=== PATIENT | male | born 1940 | race Caucasian/White ===

== ENCOUNTER 2017-03-29 14:13 | Emergency (ER) | payer MEDICARE, BC ==
[2017-03-29 14:56] VITALS: BP 113/65
--- NOTE | 2017-03-29 15:36 | RAD ---
HISTORY: Trauma, medial patellar pain COMPARISONS: None VIEWS: 2, Frontal and lateral views of the right knee FINDINGS: BONE DENSITY: Normal. BONES: There is no displaced fracture. JOINTS: There is mild tricompartmental osteoarthritis. There is no suprapatellar joint effusion or lipohemarthrosis. ALIGNMENT: There is no dislocation. SOFT TISSUES: Unremarkable. OTHER FINDINGS: None. IMPRESSION: NO ACUTE OSSEOUS INJURY. IF SYMPTOMS PERSIST, RECOMMEND REPEAT IMAGING.
--- NOTE | 2017-03-29 15:40 | UC ---
Knee Pain HPI - HPI Summary HPI Summary: complaint of right knee pain that started 3 days ago slight swelling on the medial side of knee hurts when he is walking and standing no pain with resting of his knee denies trauma tried to use aspercreme without relief - History of Current Complaint Chief Complaint: UCLowerExtremity Stated Complaint: RIGHT KNEE INJURY Time Seen by Provider: 03/29/17 15:31 Hx Obtained From: Patient - Allergies/Home Medications Allergies/Adverse Reactions: Allergies Allergy/AdvReac Type Severity Reaction Status Date / Time Sulfa Antibiotics Allergy See Comment Verified 03/29/17 14:52 Home Medications: Home Medications Brimonidine/Timolol OPTH(NF) [Combigan OPHTH (NF)] 03/29/17 [History] Carbidopa-Levodopa [Carbidopa/Levodopa] 03/29/17 [History] FLUoxetine CAP* [Prozac CAP*] 03/29/17 [History] Finasteride TAB* [Proscar TAB*] 03/29/17 [History Confirmed 03/29/17] Pantoprazole Sodium [Protonix] 40 mg 03/29/17 [History] Tamsulosin CAP* [Flomax CAP*] 03/29/17 [History] buPROPion TAB* [Wellbutrin TAB*] 03/29/17 [History] predniSONE TAB* [Deltasone TAB*] 03/29/17 [History] PMH/Surg Hx/FS Hx/Imm Hx Previously Healthy: Yes - newlt dx for parkinson, enlarged prostate Psychological History: Depression - Surgical History Surgical History: Yes Surgery Procedure, Year, and Place: BILATERAL HIP REPLACEMENTS , CERVICAL FUSION 1987, FINGER SURGERY - Family History Known Family History: Negative: Cardiac Disease, Hypertension, Diabetes - Social History Occupation: Retired Lives: With Family Alcohol Use: None Substance Use Type: None Smoking Status (MU): Former Smoker Review of Systems Constitutional: Negative Skin: Negative Eyes: Negative ENT: Negative Respiratory: Negative Cardiovascular: Negative Gastrointestinal: Negative Genitourinary: Negative Motor: Negative Neurovascular: Negative Musculoskeletal: Other: - right knee pain Neurological: Negative Psychological: Negative All Other Systems Reviewed And Are Negative: Yes Physical Exam Triage Information Reviewed: Yes Appearance: No Pain Distress, Well-Nourished Vital Signs: Initial Vital Signs Temp 98.9 F 03/29/17 14:54 Pulse 68 03/29/17 14:54 Resp 16 03/29/17 14:54 BP 113/65 03/29/17 14:54 Pulse Ox 100 03/29/17 14:54 Vital Signs Reviewed: Yes Eyes: Positive: Conjunctiva Clear ENT: Positive: Pharynx normal, TMs normal Neck: Positive: No Lymphadenopathy Respiratory: Positive: Lungs clear, Normal breath sounds, No respiratory distress, No accessory muscle use Cardiovascular: Positive: RRR, No Murmur, Pulses Normal Abdomen Description: Positive: Nontender, Soft Bowel Sounds: Positive: Present Musculoskeletal: Positive: Other: - RLE-tenderness in medial side of knee No bakers cyst. Full ROM (extension/flexion). Limited internal and external rotation. Medial, lateral meniscus; anterior, posterior cruciate ligaments , medial & lateral collateral ligaments intact as assessed with negative Anterior/ Posterior Drawer signs, Lachmans, and McMurrays Tests. No effusion, bulge/ balloon sign Neurological: Positive: Alert Psychological Exam: Normal Skin Exam: Normal Knee Pain Course/Dx - Course Course Of Treatment: exam completed. x-ray results - no fracture or other abnormalities. will treat for knee sprain, NSIADS and followup with PCP - Differential Dx/Diagnosis Differential Diagnosis/HQI/PQRI: Fracture (Closed), Sprain, Strain Provider Diagnoses: right knee pain Discharge - Discharge Plan Condition: Stable Disposition: HOME Patient Education Materials: Knee Pain (ED), RICE Therapy (ED) Referrals: Jimbo Sawyer MD [Primary Care Provider] - Additional Instructions: Increase fluids and rest Take acetaminophen 650 mg PO twice a day for pain rest your knee, elevate your leg and apply ice to your knee twice a day Please review your discharge instructions. If your symptoms do not improve please call your primary care provider or return to urgent care.
== END 2017-03-29 15:55 | disposition home or self-care (01) ==
LOC: UCEAST 14:13
DX: M25.561 Pain in right knee (principal); G20 Parkinson's disease; N40.0 Benign prostatic hyperplasia without lower urinary tract symptoms; F32.9 Major depressive disorder, single episode, unspecified; Z79.52 Long term (current) use of systemic steroids; Z87.891 Personal history of nicotine dependence
CPT/HCPCS: 99211; G0463

== ENCOUNTER 2017-04-27 17:18 | Emergency (ER) | payer MEDICARE, BC ==
[2017-04-27 17:31] VITALS: BP 138/76
--- NOTE | 2017-04-27 18:30 | UC ---
Jorge Coates Alfonso, scribed for Raúl Cochran MD on 04/27/17 at 1757 . General HPI - HPI Summary HPI Summary: This patient is a 77 year old M presenting to [facility] accompanied by female with a chief complaint of head tingling since this morning. Approximately 4 intermittent episodes lasting 2 minutes at most. Symptoms aggravated by nothing and alleviated by spontaneous resolution. Patient reports fatigue. Patient denies headache, falling, losing balance, facial drooping, and vision loss. He has been on pre-Parkinsons medications for a few months. He takes a baby aspirin daily. He states he is outdoors often but denies an acknowledge tick bite. PMHx of enlarged prostate and pre-Parkinsons. - History of Current Complaint Chief Complaint: UCGeneralIllness Stated Complaint: TINGLING IN HEAD X4 TODAY Hx Obtained From: Patient Onset/Duration: Sudden Onset, Lasting Hours - Morning, Still Present Timing: Intermittent Episodes Lasting: - 4 episodes latting at most 2 minutes. Onset Severity: Moderate Current Severity: Moderate Aggravating: nothing. Alleviating: spontaneous resolution. Associated Signs & Symptoms: Positive: Other - Patient reports fatigue. Patient denies headache, falling, losing balance, facial drooping, and vision loss. - Allergy/Home Medications Allergies/Adverse Reactions: Allergies Allergy/AdvReac Type Severity Reaction Status Date / Time Sulfa Antibiotics Allergy See Comment Verified 03/29/17 14:52 Home Medications: Home Medications Aspirin [Aspirin 81 MG TAB] 04/27/17 [History] Brimonid/Timolol 0.2/0.5%(NF) [Combigan 0.2/0.5% (NF)] 04/27/17 [History] Cholecalciferol [Vitamin D] 5,000 unit PO 04/27/17 [History] Cyanocobalamin [Vitamin B 12] 1,000 mcg PO 04/27/17 [History] Diazepam [Valium] 5 mg PRN 04/27/17 [History] Temazepam [Restoril] PRN 04/27/17 [History] PMH/Surg Hx/FS Hx/Imm Hx Other GI/ History: enlarged prostate Other Psychological History: pre-Parkinsons. - Surgical History Surgical History: Yes Surgery Procedure, Year, and Place: BILATERAL HIP REPLACEMENTS , CERVICAL FUSION 1987, FINGER SURGERY - Family History Known Family History: Positive: Other - CVA in father Negative: Cardiac Disease, Hypertension, Diabetes - Social History Alcohol Use: None Substance Use Type: None Smoking Status (MU): Former Smoker Review of Systems Constitutional: Fatigue Neurological: Other - Positive head tingling; negative headache, falling, losing balance, facial drooping, and vision loss. All Other Systems Reviewed And Are Negative: Yes Physical Exam Triage Information Reviewed: Yes Vital Signs: Initial Vital Signs Temp 99.7 F 04/27/17 17:19 Pulse 76 04/27/17 17:19 Resp 16 04/27/17 17:19 BP 138/76 04/27/17 17:19 Pulse Ox 97 04/27/17 17:19 Vital Signs Reviewed: Yes - Additional Comments The patient is well-nourished in no acute distress and in no acute pain. The skin is warm and dry and skin color reflects adequate perfusion. Maculopapular rash across the midline at forehead and scalp. Not raised, vesicular, or tender. HEENT: The head is normocephalic and atraumatic. The pupils are equal and reactive. EOMI. Visual acuity intact. The conjunctivae are clear and without drainage. Nares are patent and without drainage. Mouth reveals moist mucous membranes and the throat is without erythema and exudate. The external ears are intact. The ear canals are patent and without drainage. The tympanic membranes are intact. Neck is supple with full range of motion and non-tender. There are no carotid bruits. There is no neck vein distension. Respiratory: Chest is non-tender. Lungs are clear to auscultation and breath sounds are symmetrical and equal. Cardiovascular: Heart is regular rate and rhythm. There is no murmur or rub auscultated. There is no peripheral edema and pulses are symmetrical and equal. Abdomen: The abdomen is soft and non-tender. There are normal bowel sounds heard in all four quadrants and there is no organomegaly palpated. Musculoskeletal: There is no back pain noted. Extremities are non-tender with full range of motion. There is good capillary refill. Pitting edema in left ankle. Neurological: Patient is alert and oriented to person, place and time. The patient has symmetrical motor strength in all four extremities. No facial droop. Tongue is midline. Cranial nerves 2-12 intact. No pronator drifts. No leg drifts. Negative Babinskis. Can do heel to szymanski. Psychiatric: The patient has an appropriate affect and does not exhibit any anxiety or depression. Course/Dx - Course Course Of Treatment: This patient is a 77 year old M presenting to [facility] accompanied by female with a chief complaint of head tingling since this morning. Approximately 4 intermittent episodes lasting 2 minutes at most. Symptoms aggravated by nothing and alleviated by spontaneous resolution. Patient reports fatigue. Patient denies headache, falling, losing balance, facial drooping, and vision loss. He has been on pre-Parkinsons medications for a few months. He takes a baby aspirin daily. He states he is outdoors often but denies an acknowledge tick bite. PMHx of enlarged prostate and pre- Parkinsons. Patient will GO IMMEDIATELY TO THE EMERGENCY DEPARTMENT FOR FURTHER WORK UP AND EVALUATION OF TRANSIENT ISCHEMIC ATTACKS AND LYME DISEASE. The patient is agreeable with this plan. - Differential Dx - Multi-Symptom Differential Diagnoses: Metabolic Abnormality, Other - tia, lymes disease, anemia, progression of his parkinson's disease Provider Diagnoses: TIA, LYME's Disease, Parkinson/s Disease Discharge - Discharge Plan Condition: Stable Disposition: [facility]ANS [facility] Discharge Disposition Comment: EMERGENCY DEPARTMENT Patient Education Materials: Transient Ischemic Attack (ED) Referrals: Jimbo Sawyer MD [Primary Care Provider] - 3 Days Additional Instructions: GO IMMEDIATELY TO THE EMERGENCY DEPARTMENT FOR FURTHER WORK UP AND EVALUATION OF TRANSIENT ISCHEMIC ATTACKS AND LYME DISEASE. NIH Scale - NIH Scale Level of Consciousness: Alert/Keenly Responsive Ask Patient the Month and His/Her Age: Both Correct Ask Pt to Open/Close Eyes and Stop Attacher/Release Non-Paretic Hand: Both Correctly Best Gaze (Only Horizontal Eye Movement): Normal Visual Field Testing: No Visual Loss Facial Paresis-Pt to Smile & Close Eyes or Grimace Symmetry: Normal/Symmetrical Motor Function - Right Arm: No Drift-Holds 10 Seconds Motor Function - Left Arm: No Drift-Holds 10 Seconds Motor Function - Right Leg: No Drift-Holds 10 Seconds Motor Function - Left Leg: No Drift-Holds 10 Seconds Limb Ataxia-Must be out of Proportion to Weakness Present: Absent Sensory (Use Pinprick to Test Arms/Legs/Trunk/Face): Normal Best Language (Describe Picture, Name Items): No Aphasia Dysarthria (Read Several Words): Normal Extinction and Inattention: No Abnormality Total Score: 0 The documentation as recorded by the Jorge josé Alfonso accurately reflects the service I personally performed and the decisions made by , Raúl Cochran MD.
== END 2017-04-27 18:09 | disposition short-term general hospital (02) ==
LOC: UCEAST 17:18
DX: G45.9 Transient cerebral ischemic attack, unspecified (principal); A69.20 Lyme disease, unspecified; G20 Parkinson's disease; N40.0 Benign prostatic hyperplasia without lower urinary tract symptoms; Z88.2 Allergy status to sulfonamides; Z79.82 Long term (current) use of aspirin; Z96.643 Presence of artificial hip joint, bilateral; Z87.891 Personal history of nicotine dependence
CPT/HCPCS: 99212; G0463

== ENCOUNTER 2017-04-27 18:24 | Emergency (ER) | payer MEDICARE, BC ==
[2017-04-27 19:38] LABS: Hematocrit 42 % (42-52); Hemoglobin 14.3 g/dl (14.0-18.0); Mean Corpuscular HGB Conc 34 g/dl (31-36); Mean Corpuscular Hemoglobin 31 pg (27-31); Mean Corpuscular Volume 90 fL (80-94); Mean Platelet Volume 7 um3 (7.4-10.4); Red Blood Count 4.67 10^6/ul (4.0-5.4); Red Cell Distribution Width 14 % (10.5-15); White Blood Count 5.4 10^3/ul (3.5-10.8)
--- NOTE | 2017-04-27 19:53 | RAD ---
Indication: Tingling scalp. CT of the brain was performed without IV contrast. Ventricular structures are midline. No midline shift is noted. There is central and cortical atrophy noted. There is no evidence of intracranial mass or hemorrhage. No other high or low density lesions are identified. Mastoid air cells and paranasal sinuses are unremarkable. Tiny mucus retention cyst is noted in the right sphenoid air cells. IMPRESSION: No intracranial mass or hemorrhage
[2017-04-27 19:54] LABS: Albumin 4.2 g/dL (3.2-5.2); BUN/Creatinine Ratio 20.4 (8-20); Calcium 9.4 mg/dL (8.6-10.3); EGFR African American 89.6 (>60); EGFR Non-African American 69.7 (>60); Globulin 2.5 g/dL (2-4); Magnesium 2.1 mg/dL (1.9-2.7); Potassium 4.4 mmol/L (3.5-5.0); Total Bilirubin 0.9 mg/dL (0.2-1.0); Total Protein 6.7 g/dL (6.4-8.9)
[2017-04-27 19:55] LABS: Urine Bilirubin Negative (Negative); Urine Glucose Negative (Negative); Urine Nitrite Negative (Negative)
[2017-04-27 20:28] LABS: TSH (Thyroid Stimulating Horm) 1.12 mcIU/mL (0.34-5.60)
--- NOTE | 2017-04-27 20:51 | ED ---
Martine Coates Rebecca, scribed for Ling Melo MD on 04/27/17 at 1839 . Complex/Multi-Sys Presentation - HPI Summary HPI Summary: Pt is a 77 y/o M who presents to ED form [facility] s/p 4 episodes of facial "prickling." The incidences occurred at 0800, 1500 and 1530 with the 2nd episode at an unknown time. Pt reports the sensation that his "head had a funny feeling" and that he "felt kind of prickly" and was present on both sides of the face and head. The first episode resolved after 2-3 minutes, the third in 1.5 minutes and the last was shorter. Sx aggravated by nothing, alleviated by spontaneous resolution. Additionally c/o fatigue and slight lightheadedness during the episodes. Denies fever, chills, CP, SOB, cough, difficulty walking, slurred speech, [place], diplopia, neck pain and rash. No recent falls and is not on blood thinners. - History Of Current Complaint Chief Complaint: EDGeneral Time Seen by Provider: 04/27/17 18:34 Hx Obtained From: Patient Onset/Duration: Resolved Timing: Intermittent, Lasting:, Minutes Severity Currently: None Location: Negative Aggravating Factor(s): Nothing Alleviating Factor(s): Spontaneous resolution Associated Signs And Symptoms: Negative: Headache, Chest Pain - Allergies/Home Medications Allergies/Adverse Reactions: Allergies Allergy/AdvReac Type Severity Reaction Status Date / Time Sulfa Antibiotics Allergy See Comment Verified 04/27/17 18:45 PMH/Surg Hx/FS Hx/Imm Hx Endocrine/Hematology History: Denies: Hx Diabetes Cardiovascular History: Denies: Hx Hypertension, Hx Pacemaker/ICD History: Denies: Hx Dialysis, Hx Renal Disease Sensory History: Denies: Hx Hearing Aid Neurological History: Reports: Other Neuro Impairments/Disorders - Pre-Parkinson 's Psychiatric History: Denies: Hx Panic Disorder - Surgical History Surgery Procedure, Year, and Place: BILATERAL HIP REPLACEMENTS , CERVICAL FUSION 1987, FINGER SURGERY Infectious Disease History: Denies: History Other Infectious Disease, Traveled Outside the [place] in Last 30 Days - Family History Known Family History: Negative: Cardiac Disease, Hypertension, Diabetes - Social History Alcohol Use: None Substance Use Type: Reports: None Smoking Status (MU): Former Smoker Review of Systems Positive: Fatigue, Other - 4 episodes of facial "prickling" - resolved. Negative: Fever, Chills Negative: Diplopia Negative: Chest Pain Negative: Shortness Of Breath, Cough Positive: Other - NEGATIVE: neck pain Negative: Rash Neurological: Other - POSITIVE: lightheadedness during episodes (resolved); NEGATIVE: difficulty walking Negative: Headache, Slurred Speech All Other Systems Reviewed And Are Negative: Yes Physical Exam - Summary Physical Exam Summary: General: Well appearing, no pain distress Skin: Warm, Skin Color Reflects Adequate Perfusion, Dry Eyes: EOMI, [place]IL[place] ENT: Pharynx normal, TMs normal Neck: Supple, nontender Respiratory: CTA, breath sounds present, no rhonchi, no wheezes, no rales Cardiovascular: RRR, no murmur, no rub, no gallop Abdomen: Soft, nontender, Non-distended, no guarding, no rebound Bowel: Present Musculoskeletal: ALVA, 1+ edema bilaterally Neuro: Sensory/motor intact, A&Ox3, CN intact 2-12 Psych: Affect/mood appropriate Triage Information Reviewed: Yes Vital Signs On Initial Exam: Initial Vitals Temp Pulse Resp BP Pulse Ox 98.5 F 75 16 145/65 98 04/27/17 18:27 04/27/17 18:27 04/27/17 18:27 04/27/17 18:27 04/27/17 18:27 Vital Signs Reviewed: Yes - Cr[place]all Coma Scale Best Eye Response: 4 - Spontaneous Best Motor Response: 6 - Obeys Commands Best Verbal Response: 5 - Oriented Glascow Coma Scale Comments: 15 Diagnostics - Vital Signs Vital Signs Temp Pulse Resp BP Pulse Ox 04/27/17 18:27 98.5 F 75 16 145/65 98 - Laboratory Lab Results: Lab Results 04/27/17 04/27/17 04/27/17 Range/Units 19:30 19:30 19:30 WBC 5.4 (3.5-10.8) 10^3/ul RBC 4.67 (4.0-5.4) 10^6/ul Hgb 14.3 (14.0-18.0) g/dl Hct 42 (42-52) % MCV 90 (80-94) fL MCH 31 (27-31) pg MCHC 34 (31-36) g/dl RDW 14 (10.5-15) % Plt Count 169 (150-450) 10^3/ul MPV 7 L (7.4-10.4) um3 Neut % (Auto) 72.5 (38-83) % Lymph % (Auto) 20.0 L (25-47) % [place] % (Auto) 6.6 (1-9) % Eos % (Auto) 0.4 (0-6) % Baso % (Auto) 0.5 (0-2) % Absolute Neuts (auto) 3.9 (1.5-7.7) 10^3/ul Absolute Lymphs (auto) 1.1 (1.0-4.8) 10^3/ul Absolute Monos (auto) 0.4 (0-0.8) 10^3/ul Absolute Eos (auto) 0 (0-0.6) 10^3/ul Absolute Basos (auto) 0 (0-0.2) 10^3/ul Absolute Nucleated RBC 0.01 10^3/ul Nucleated RBC % 0.1 Sodium 134 (133-145) mmol/L Potassium 4.4 (3.5-5.0) mmol/L Chloride 101 (101-111) mmol/L Carbon Dioxide 27 (22-32) mmol/L Anion Gap 6 (2-11) mmol/L BUN 21 (6-24) mg/dL Creatinine 1.03 (0.67-1.17) mg/dL Est GFR ( Amer) 89.6 (>60) Est GFR (Non-Af Amer) 69.7 (>60) BUN/Creatinine Ratio 20.4 H (8-20) Glucose 104 H (70-100) mg/dL Lactic Acid 0.7 (0.5-2.0) mmol/L Calcium 9.4 (8.6-10.3) mg/dL Magnesium 2.1 (1.9-2.7) mg/dL Total Bilirubin 0.90 (0.2-1.0) mg/dL AST 14 (13-39) U/L ALT 6 L (7-52) U/L Alkaline Phosphatase 45 (34-104) U/L Troponin I 0.00 (<0.04) ng/mL Total Protein 6.7 (6.4-8.9) g/dL Albumin 4.2 (3.2-5.2) g/dL Globulin 2.5 (2-4) g/dL Albumin/Globulin Ratio 1.7 (1-3) TSH 1.12 (0.34-5.60) mcIU/mL Urine Color Urine Appearance Urine pH (5-9) Ur Specific [place] (1.010-1.030) Urine Protein (Negative) Urine Ketones (Negative) Urine Blood (Negative) Urine Nitrate (Negative) Urine Bilirubin (Negative) Urine Urobilinogen (Negative) Ur Leukocyte Esterase (Negative) Urine Glucose (Negative) 04/27/17 Range/Units 19:45 WBC (3.5-10.8) 10^3/ul RBC (4.0-5.4) 10^6/ul Hgb (14.0-18.0) g/dl Hct (42-52) % MCV (80-94) fL MCH (27-31) pg MCHC (31-36) g/dl RDW (10.5-15) % Plt Count (150-450) 10^3/ul MPV (7.4-10.4) um3 Neut % (Auto) (38-83) % Lymph % (Auto) (25-47) % [place] % (Auto) (1-9) % Eos % (Auto) (0-6) % Baso % (Auto) (0-2) % Absolute Neuts (auto) (1.5-7.7) 10^3/ul Absolute Lymphs (auto) (1.0-4.8) 10^3/ul Absolute Monos (auto) (0-0.8) 10^3/ul Absolute Eos (auto) (0-0.6) 10^3/ul Absolute Basos (auto) (0-0.2) 10^3/ul Absolute Nucleated RBC 10^3/ul Nucleated RBC % Sodium (133-145) mmol/L Potassium (3.5-5.0) mmol/L Chloride (101-111) mmol/L Carbon Dioxide (22-32) mmol/L Anion Gap (2-11) mmol/L BUN (6-24) mg/dL Creatinine (0.67-1.17) mg/dL Est GFR ( Amer) (>60) Est GFR (Non-Af Amer) (>60) BUN/Creatinine Ratio (8-20) Glucose (70-100) mg/dL Lactic Acid (0.5-2.0) mmol/L Calcium (8.6-10.3) mg/dL Magnesium (1.9-2.7) mg/dL Total Bilirubin (0.2-1.0) mg/dL AST (13-39) U/L ALT (7-52) U/L Alkaline Phosphatase (34-104) U/L Troponin I (<0.04) ng/mL Total Protein (6.4-8.9) g/dL Albumin (3.2-5.2) g/dL Globulin (2-4) g/dL Albumin/Globulin Ratio (1-3) TSH (0.34-5.60) mcIU/mL Urine Color Yellow Urine Appearance Clear Urine pH 7.0 (5-9) Ur Specific [place] 1.011 (1.010-1.030) Urine Protein Negative (Negative) Urine Ketones Trace H (Negative) Urine Blood Negative (Negative) Urine Nitrate Negative (Negative) Urine Bilirubin Negative (Negative) Urine Urobilinogen Negative (Negative) Ur Leukocyte Esterase Negative (Negative) Urine Glucose Negative (Negative) Result Diagrams: 04/27/17 19:30 04/27/17 19:30 Lab Statement: Any lab studies that have been ordered have been reviewed, and results considered in the medical decision making process. - CT Brain CT CT Interpretation: No Acute Changes - No intracranial mass or hemorrhage. CT Interpretation Completed By: Radiologist - EKG 1933 Cardiac Rate: NL - 71 bpm EKG Rhythm: Sinus Rhythm EKG Interpretation: No ST elevations National Institutes Of Health - NIH Scale Level of Consciousness: Alert/Keenly Responsive Ask Patient the Month and His/Her Age: Both Correct Ask Pt to Open/Close Eyes and Frame Hand/Release Non-Paretic Hand: Both Correctly Best Gaze (Only Horizontal Eye Movement): Normal Visual Field Testing: No Visual Loss Facial Paresis-Pt to Smile & Close Eyes or Grimace Symmetry: Normal/Symmetrical Motor Function - Right Arm: No Drift-Holds 10 Seconds Motor Function - Left Arm: No Drift-Holds 10 Seconds Motor Function - Right Leg: No Drift-Holds 10 Seconds Motor Function - Left Leg: No Drift-Holds 10 Seconds Limb Ataxia-Must be out of Proportion to Weakness Present: Absent Sensory (Use Pinprick to Test Arms/Legs/Trunk/Face): Normal Best Language (Describe Picture, Name Items): No Aphasia Dysarthria (Read Several Words): Normal Extinction and Inattention: No Abnormality Total Score: 0 Re-Evaluation - Re-Evaluation First Eval Re-Evaluation Time: 20:46 Comment: Discussed CT results with the pt. He continues to be asymptomatic. Advised him to take it easy with no mowing the lawn or any strenuous activities. Complex Multi-Symp Course/Dx Assessment/Plan: very well appearing 77 yo with numbing sensation to both sides of front of scalp 4 times today no identified symptoms associated with this labs , ct, ua neg and pt encouraged to take it easy over next few days to better identify what was happening- no exertional activities - Diagnoses Provider Diagnoses: Abnormal Sensation Discharge - Discharge Plan Condition: Stable Disposition: HOME Patient Education Materials: Paresthesia (ED) Referrals: Jimbo Sawyer MD [Primary Care Provider] - 3 Days The documentation as recorded by the Martine josé Rebecca accurately reflects the service I personally performed and the decisions made by me, Ling Melo MD.
[2017-04-27 21:33] VITALS: BP 129/68
== END 2017-04-27 21:34 | disposition home or self-care (01) ==
LOC: ED 18:24
DX: R20.0 Anesthesia of skin (principal); R53.83 Other fatigue; M54.2 Cervicalgia; Z87.891 Personal history of nicotine dependence
CPT/HCPCS: 36415; 70450; 80053; 81003; 83605; 83735; 84443; 84484; 85025; 93005; 99283

== ENCOUNTER 2018-04-09 07:35 | Day surgery (SDC) | payer MEDICARE, BC ==
[~2018-04-09 07:35] MED LIST: Acetaminophen TAB* 325 MG PO PRN; Buffered Lidocaine 0.9% SYRIN* 5 ML/SYR SYRINGE INTRADERM ONE
[2018-04-09] MEDS ORDERED: Midazolam* 1 MG/ML 2 ML VIAL (2 MG) ONE ×2 (08:44→08:46)
[2018-04-09 10:28] VITALS: BP 123/62
[2018-04-09] MEDS ORDERED: Neomycin/Polymy/Dex OPTH.SUSP* MAXITROL 0.1% 5 ML ONE ×3 (15:07→15:30)
[2018-04-09] MEDS ORDERED: Cyclopentolate 1% OPTH.SOL* 2 ML BTL ONE ×3 (15:07→15:30)
[2018-04-09] MEDS ORDERED: Lidocaine 1%* 5 ML VIAL ONE ×3 (15:07→15:30)
[2018-04-09] MEDS ORDERED: Lidocaine 2% EPI 1:200000 MPF*10-20 ML VIAL ONE ×3 (15:07→15:30)
[2018-04-09] MEDS ORDERED: Phenylephrine 2.5% OPTH.SOL* 2 ML BTL ONE ×3 (15:07→15:30)
[2018-04-09] MEDS ORDERED: acetaZOLAMIDE TAB* 250 MG ONE ×3 (15:07→15:30)
[2018-04-09] MEDS ORDERED: Povidone Iodine 5% OPTH* 30 ML BTL ONE ×3 (15:07→15:30)
[2018-04-09] MEDS ORDERED: Ketorolac 0.5% OPHTH (NF) 0.5 % 5 ML BTL ONE ×2 (15:08→15:30)
[2018-04-09] MEDS ORDERED: Proparacaine 0.5% OPHTH.SOL* 15 ML BTL ONE ×2 (15:08→15:31)
--- NOTE | 2018-04-10 05:05 | OP ---
DATE OF OPERATION: 04/09/18 - [facility] DATE OF : 36 SURGEON: Terry Srivastava M.D. PREOPERATIVE DIAGNOSES: 1. Cataract, right eye. 2. Open-angle glaucoma, right eye. POSTOPERATIVE DIAGNOSES: 1. Cataract, right eye. 2. Open-angle glaucoma, right eye. OPERATIVE PROCEDURE: Extracapsular cataract extraction with intraocular lens implant and iStent, right eye. DESCRIPTION OF PROCEDURE: The patient was brought to the operating room after being given 1/2% Alcaine with epinephrine drops in the preoperative area. The eye was prepped and draped in the usual sterile fashion. Sterile drape and eyelid speculum were placed. Again, topical 1/2% Alcaine with epinephrine was given. A paracentesis incision was made at the 9 o'clock position with the No.75 blade. Clear cornea incision 2.2 x 2.2-mm was created at the 12 o'clock position starting at the anterior limbus using the 2.2-mm keratome. The anterior chamber was irrigated with 0.4 mL of 1% non-preservative intracameral lidocaine and filled with DisCoVisc. A capsulorrhexis was completed using the cystotome and the Utrata forceps. Hydrodissection was performed with balanced salt solution. The lens nucleus was removed with the Phacoemulsification handpiece without incident. Cortex was removed with the irrigation-aspiration handpiece. The capsular bag was re-inflated using DisCoVisc and an [id number] implant was inserted with the shooter, followed by an iStent [id number] inserted into the trabecular meshwork at the 3 o'clock position with its shooter. The pupil is only 3 mm, so a Malyugin ring was placed prior to capsulorrhexis, removed after insertion of the lens. The irrigation-aspiration handpiece was used to remove all residual DisCoVisc. The eye was refilled with balanced salt solution and the wound checked and found to be watertight. Topical Maxitrol drops were given. Indication for complex cataract surgery: Pupil abnormalities requiring pupil dilation device. [id number] #: [id number] MTDD
== END 2018-04-09 10:34 | disposition home or self-care (01) ==
LOC: OREAST 07:35
PROVIDERS: ATTEND Specialist
DX: H25.11 Age-related nuclear cataract, right eye (principal); H40.1132 Primary open-angle glaucoma, bilateral, moderate stage; H21.561 Pupillary abnormality, right eye; Z87.891 Personal history of nicotine dependence; I10 Essential (primary) hypertension; G20 Parkinson's disease; K21.9 Gastro-esophageal reflux disease without esophagitis; F41.9 Anxiety disorder, unspecified
CPT/HCPCS: A9270-GY; C1783; J2250; V2632

== ENCOUNTER → 2018-07-30 09:44 | Day surgery (SDC) | payer MEDICARE, BC ==
[~2018-07-30 09:44] MED LIST changes: +Cyclopentolate 1% OPTH.SOL* 2 ML BTL ONE; +Ketorolac 0.5% OPHTH (NF) 0.5 % 5 ML BTL ONE; +Lidocaine 1%* 5 ML VIAL ONE; +Lidocaine 2% EPI 1:200000 MPF*10-20 ML VIAL ONE; +Midazolam* 1 MG/ML 2 ML VIAL (2 MG) ONE; +Neomycin/Polymy/Dex OPTH.SUSP* MAXITROL 0.1% 5 ML ONE; +Phenylephrine 2.5% OPTH.SOL* 2 ML BTL ONE; +Povidone Iodine 5% OPTH* 30 ML BTL ONE; +Proparacaine 0.5% OPHTH.SOL* 15 ML BTL ONE; +acetaZOLAMIDE TAB* 250 MG ONE
[2018-07-30 12:02] VITALS: BP 108/62
--- NOTE | 2018-07-31 03:49 | OP ---
DATE OF OPERATION: 07/30/18 [facility] DATE OF : 36 SURGEON: Terry Srivastava M.D. PRE-OP DIAGNOSES: Cataract, left eye; glaucoma, left eye. POST-OP DIAGNOSES: Cataract, left eye; glaucoma, left eye. OPERATIVE PROCEDURE: Extracapsular cataract extraction with intraocular lens implant left eye and iStent. DESCRIPTION OF PROCEDURE: The patient was brought to the operating room after being given 1/2% Alcaine with epinephrine drops in the preoperative area. The eye was prepped and draped in the usual sterile fashion. Sterile drape and eyelid speculum were placed. Again, topical 1/2% Alcaine with epinephrine was given. A paracentesis incision was made at the 3 o'clock position with the No.75 blade. Clear cornea incision 2.2 x 2.2-mm was created at the 6 o'clock position starting at the anterior limbus using the 2.2-mm keratome. The anterior chamber was irrigated with 0.4 mL of 1% non-preservative intracameral lidocaine and filled with DisCoVisc. A capsulorrhexis was completed using the cystotome and the Utrata forceps. Hydrodissection was performed with balanced salt solution. The lens nucleus was removed with the Phacoemulsification handpiece without incident. Cortex was removed with the irrigation-aspiration handpiece. The capsular bag was re-inflated using DisCoVisc and an [id number] implant was inserted with the shooter. The pupil was very small, so a Malyugin ring was used to dilate the pupil prior to capsulorrhexis and removed after insertion of the lens. This was then followed by [id number] iStent, inserted with its shooter into the trabecular meshwork at the 9 o'clock position. The irrigation-aspiration handpiece was used to remove all residual DisCoVisc. The eye was refilled with balanced salt solution and the wound checked and found to be watertight. Topical Maxitrol drops were given. INDICATION FOR COMPLEX CATARACT SURGERY: Pupillary abnormalities requiring pupil dilation device. [id number]/[facility] #: [id number] MTDD
== END | disposition home or self-care (01) ==
LOC: OREAST 09:44
PROVIDERS: ATTEND Specialist
DX: H25.12 Age-related nuclear cataract, left eye (principal); H40.1132 Primary open-angle glaucoma, bilateral, moderate stage; H21.562 Pupillary abnormality, left eye; I10 Essential (primary) hypertension; G20 Parkinson's disease; Z87.891 Personal history of nicotine dependence; G47.33 Obstructive sleep apnea (adult) (pediatric); K21.9 Gastro-esophageal reflux disease without esophagitis; F41.9 Anxiety disorder, unspecified; I73.00 Raynaud's syndrome without gangrene
CPT/HCPCS: A9270-GY; C1783; J2250; V2632

== ENCOUNTER 2018-09-02 22:24 | Inpatient (IN) | payer MEDICARE, BC ==
--- NOTE | 2018-09-02 23:15 | ED ---
GI/ HPI - HPI Summary HPI Summary: This patient is an 78 year old M with a PMHx of pancreatitis presenting to [facility] with a chief complaint of hematuria since 08:00 today. He noticed that his urine was pink this morning and it became progressively pinker throughout the day. Patient denies a PMHx of prostate cancer or bladder cancer. - History of Current Complaint Chief Complaint: EDUrogenitalProblems Time Seen by Provider: 09/02/18 23:04 Stated Complaint: URINATING BLOOD Hx Obtained From: Patient Onset/Duration: Started Hours Ago - 08:00 today, Still Present Timing: Lasting Hours Pain Intensity: 0 Associated Signs and Symptoms: Positive: Other: - Denies other urinary symptoms. Negative: Abdominal Pain - Allergy/Home Medications Allergies/Adverse Reactions: Allergies Allergy/AdvReac Type Severity Reaction Status Date / Time Sulfa (Sulfonamide Allergy reaction Verified 07/30/18 09:54 Antibiotics) as a child whole eggs Allergy Diarrhea Uncoded 07/30/18 09:54 PMH/Surg Hx/FS Hx/Imm Hx Endocrine/Hematology History: Denies: Hx Diabetes Cardiovascular History: Reports: Hx Hypertension - HX OF IN THE PAST- REPORTS NOT CURRENTLY AND NO MEDICATION FOR Denies: Hx Pacemaker/ICD, Other Cardiovascular Problems/Disorders Respiratory History: Reports: Hx Sleep Apnea - neg sleep study Denies: Other Respiratory Problems/Disorders - PNEUMONIA A CHILD GI History: Reports: Hx Gastroesophageal Reflux Disease - ON MEDICATION FOR, Hx Hiatal Hernia - UNDER CONTROL Denies: Other GI Disorders History: Reports: Other Problems/Disorders - ENLARGE PROSTATE WITH TURP Denies: Hx Dialysis, Hx Renal Disease Musculoskeletal History: Reports: Hx Arthritis - all over, mild, Other Musculoskeletal History - BILATERAL HIP REPLACEMENTS Sensory History: Reports: Hx Cataracts - BILATERAL, Hx Contacts or Glasses - GLASSES, Hx Glaucoma - BILATERAL Denies: Hx Hearing Aid Opthamlomology History: Reports: Hx Cataracts - BILATERAL, Hx Contacts or Glasses - GLASSES, Hx Glaucoma - BILATERAL Neurological History: Reports: Hx Headaches - A CHILD, Hx Seizures - X 1 STATES RELATED TO [place]-05/2017, Other Neuro Impairments/Disorders - Parkinson's Psychiatric History: Reports: Hx Anxiety - ON MEDICATION FOR, Hx Depression - ON MEDICATION FOR Denies: Hx Panic Disorder - Surgical History Surgery Procedure, Year, and Place: BILATERAL HIP REPLACEMENTS ,. CERVICAL FUSION 1987,. FINGER SURGERY. TURP, [facility] Hx Anesthesia Reactions: No Infectious Disease History: No Infectious Disease History: Denies: History Other Infectious Disease, Traveled Outside the [place] in Last 30 Days - Family History Known Family History: Positive: Other - Brain cancer Negative: Cardiac Disease, Hypertension, Diabetes - Social History Alcohol Use: Daily Alcohol Amount: 1-2 GLASSES OF WINE DAILY Substance Use Type: Reports: None Smoking Status (MU): Former Smoker Type: Cigarettes Amount Used/How Often: <1 PPD X 10 YEARS Have You Smoked in the Last Year: No Review of Systems Negative: Abdominal Pain Positive: hematuria. Negative: other - Denies other urinary difficulties recently All Other Systems Reviewed And Are Negative: Yes Physical Exam - Summary Physical Exam Summary: Appearance: Well appearing, no pain distress Skin: warm, dry, reflects adequate perfusion Head/face: normal Eyes: EOMI, KAMILLE ENT: mucous membranes moist Neck: supple, non-tender Respiratory: CTA, breath sounds present Cardiovascular: RRR, pulses symmetrical Abdomen: Suprapubic tendernesst Bowel Sounds: present Musculoskeletal: normal, strength/ROM intact Neuro: normal, sensory motor intact, A&Ox3 GIGU: Urinating marc blood Triage Information Reviewed: Yes Vital Signs On Initial Exam: Initial Vitals Temp Pulse Resp BP Pulse Ox 98.8 F 78 20 169/85 98 09/02/18 22:33 09/02/18 22:33 09/02/18 22:33 09/02/18 22:33 09/02/18 22:33 Vital Signs Reviewed: Yes Diagnostics - Vital Signs Vital Signs Temp Pulse Resp BP Pulse Ox 09/02/18 22:33 98.8 F 78 20 169/85 98 - Laboratory Result Diagrams: 09/02/18 23:19 09/02/18 23:19 Lab Statement: Any lab studies that have been ordered have been reviewed, and results considered in the medical decision making process. - CT Urogram CT CT Interpretation Completed By: Radiologist Summary of CT Findings: 02:15. 1.Approximately 7.6 x 7.9 cm hemorrhagic mass like lesion within the bladder. without causing obstruction of the UVJ. Further evaluation is recommended. 2. No significant wall thickening of the bladder or surrounding fat stranding. to suggest cystitis. 3.No obstructing stone or significant hydronephrosis. 4.A moderate hiatal hernia. 5. Colonic diverticulosis with no evidence of acute diverticulitis. 6. Large fecal load. 7. Infrarenal focal aneurysmal dilatation of abdominal aorta, measuring 2.3 cm. 8. A 0.9 cm left adrenal adenoma. ED Physician has reviewed this imaging report. - EKG 23:23 Cardiac Rate: NL - 76 BPM EKG Rhythm: Sinus Rhythm ST Segment: Normal Ectopy: None Re-Evaluation - Re-Evaluation First Eval Change: Unchanged - Patient continuing to have pain and passing clots despite continuous bladder irrigation GIGU Course/Dx - Course Course Of Treatment: Nurses note reviewed. Patient with heavy marc hematuria and clotting. Three-way Pham catheter placed with continuous bladder irrigation. This clotted off several times and required manual irrigation. Patient's pain was treated. He was given IV Rocephin at the request of the urologist. Possible bladder mass identified on CT urogram. Urology plans to take to the OR this morning. Hospitalist to admit. Blood count stable. Preoperative testing performed. Admit for further. - Diagnoses Differential Diagnoses - Male: Other - Renal mass, bladder mass, prostatic bleeding, UTI, medication effect Provider Diagnoses: Marc hematuria, Bladder mass - Physician Notifications Discussed Care Of Patient With: Robby Vega - will come to evaluate, hospitalist to admit Instructed by Provider To: Other - Dr. Ngoc Carr hospitalist service will admit - Critical Care Time Critical Care Time: 30-74 min - Critical care time exclusive fully billable procedures Discharge - Sign-Out/Discharge Documenting (check all that apply): Patient Departure - Admit - Discharge Plan Condition: Guarded Disposition: ADMITTED TO [facility] Referrals: Jimbo Sawyer MD [Primary Care Provider] - - Billing Disposition and Condition Condition: GUARDED Disposition: Admitted to [facility] - Attestation Statements Document Initiated by Scribe: Yes Documenting Scribe: Williams Pathak Provider For Whom Ricarda is Documenting (Include Credential): Brenton Mar MD Scribe Attestation: Williams Coates, scribed for Brenton Mar MD on 09/03/18 at 0346. Scribe Documentation Reviewed: Yes Provider Attestation: The documentation as recorded by the Williams josé accurately reflects the service I personally performed and the decisions made by me, Brenton Mar MD Status of Scribe Document: Viewed
[2018-09-02 23:30] LABS: ABS Basophils 0 10^3/ul (0-0.2); ABS Eosinophils 0.2 10^3/ul (0-0.6); ABS Lymphocytes 1.6 10^3/ul (1.0-4.8); ABS Monocytes 0.5 10^3/ul (0-0.8); ABS Neutrophils 2.3 10^3/ul (1.5-7.7); ABS Nucleated RBC 0 10^3/ul; Eosinophil % 4.4 %; Hematocrit 43 % (42-52); Hemoglobin 14.9 g/dl (14.0-18.0); Lymphocyte % 34.2 %; Mean Corpuscular HGB Conc 34 g/dl (31-36); Mean Corpuscular Hemoglobin 31 pg (27-31); Mean Corpuscular Volume 89 fL (80-94); Mean Platelet Volume 6.9 fL (7.4-10.4); Nucleated Red Blood Cells % 0.1; Platelet Count 181 10^3/ul (150-450); Red Blood Count 4.87 10^6/ul (4.00-5.40); Red Cell Distribution Width 14 % (10.5-15); White Blood Count 4.6 10^3/ul (3.5-10.8)
[2018-09-02 23:43] LABS: Activated Partial Thrombo Time 31.1 seconds (26.0-36.3); BUN/Creatinine Ratio 15.3 (8-20); Calcium 9.1 mg/dL (8.6-10.3); EGFR Non-African American 63.7 (>60); INR 1.07 (0.77-1.02)
[2018-09-02] MEDS ORDERED: Iohexol 300* (CONTRAST) 10 ML SDV IV ONE (23:51)
[2018-09-03 00:06] LABS: Potassium 4.3 mmol/L (3.5-5.0)
[2018-09-03] MEDS ORDERED: Morphine VIAL* 4 MG/ML VIAL (1 ml vial) IV ONE (00:23)
[2018-09-03 01:52] LABS: Urine Appearance Turbid
[2018-09-03 01:53] LABS: Urine Specific Gravity 1.015 (1.010-1.030)
[2018-09-03 01:54] LABS: Urine Blood 3+ (Negative); Urine Ketones Negative (Negative); Urine Protein 2+(100 mg/dL) (Negative); Urine Urobilinogen Negative (Negative)
[2018-09-03 01:55] LABS: Urine Bilirubin Negative (Negative); Urine Color Red; Urine Nitrite Negative (Negative)
[2018-09-03 02:05] LABS: Urine Glucose 1+(50 mg/dL) (Negative); Urine White Blood Cell Trace(0-5/hpf) (Absent)
[2018-09-03 02:06] LABS: Urine Red Blood Cell 3+(>10/hpf) (Absent)
[2018-09-03] MEDS ORDERED: Morphine VIAL* 4 MG/ML VIAL (1 ml vial) IV PRN ×2 (03:27→05:25)
[2018-09-03] MEDS ORDERED: Ondansetron INJ* 2 MG/ML VIAL IV PRN (03:27)
[2018-09-03] MEDS ORDERED: Al Hydrox/Mg Hydrox/Simet LIQ* 30 ML UDC PO PRN (03:27)
[2018-09-03] MEDS ORDERED: Docusate CAP* 100 MG PO PRN (03:27)
[2018-09-03] MEDS ORDERED: Senna TAB PO PRN (03:27)
[2018-09-03] MEDS ORDERED: Meclizine TAB* 12.5 MG PO PRN (03:30)
[2018-09-03] MEDS ORDERED: Diazepam TAB(*) 5 MG PO PRN (03:30)
[2018-09-03] MEDS ORDERED: NS 0.9% 1000 ML* 1,000 ML IV SCH (03:30)
[2018-09-03] MEDS ORDERED: cefTRIAXone(*) 2 GM in NS 0.9% 100 ML* 100 ML IVPB ONE (03:35)
[2018-09-03] MEDS ORDERED: Morphine VIAL* 4 MG/ML VIAL (1 ml vial) ONE (05:28)
[2018-09-03 06:08] LABS: ABS Basophils 0 10^3/ul (0-0.2); ABS Eosinophils 0 10^3/ul (0-0.6); ABS Lymphocytes 1.3 10^3/ul (1.0-4.8); ABS Monocytes 0.6 10^3/ul (0-0.8); ABS Neutrophils 6.8 10^3/ul (1.5-7.7); ABS Nucleated RBC 0 10^3/ul; Eosinophil % 0.5 %; Hematocrit 42 % (42-52); Hemoglobin 14.4 g/dl (14.0-18.0); Lymphocyte % 14.4 %; Mean Corpuscular HGB Conc 34 g/dl (31-36); Mean Corpuscular Hemoglobin 30 pg (27-31); Mean Corpuscular Volume 88 fL (80-94); Mean Platelet Volume 7.1 fL (7.4-10.4); Nucleated Red Blood Cells % 0; Platelet Count 186 10^3/ul (150-450); Red Blood Count 4.79 10^6/ul (4.00-5.40); Red Cell Distribution Width 14 % (10.5-15); White Blood Count 8.7 10^3/ul (3.5-10.8)
[2018-09-03] MEDS: TIMOLOL BOTH EYES SCH ×2 (07:32→21:50)
[2018-09-03] MEDS: BRIMONID BOTH EYES SCH ×2 (07:32→21:50)
--- NOTE | 2018-09-03 07:54 | HP ---
CC: Jimbo Sawyer MD.* HISTORY AND PHYSICAL: DATE OF ADMISSION: 09/03/18. TIME OF EVALUATION: 0300. PRIMARY CARE PHYSICIAN: Jimbo Sawyer MD. CHIEF COMPLAINT: Blood in his urine with clotting. HISTORY OF PRESENT ILLNESS: This is an 78-year-old male with a past medical history of BPH, status post TURP, who presents to the emergency room with acute onset of hematuria. The patient states as soon as he noticed the blood in his urine, he came to the emergency room for further evaluation. He has never had issues with blood in his urine in the past. He states lately he has had urinary urgency over the past six months. He is followed by Dr. Vega. He states over the past year he has had some lower abdominal discomfort mostly in the right lower quadrant region. He is recently moved to [facility]. He has gained weight because the food is so good there. He denies any chest pain or shortness of breath. He does climb stairs. He does not get short of breath or chest pain when he climbs the stairs. No nausea, vomiting, or diarrhea. No fevers, chills, or URI symptoms. Otherwise, review of systems is negative. In the emergency room, the patient had labs and imaging. He was placed on a continuous bladder irrigation, given [address] Vega was contacted. Recommended hospitalist admission, n.p.o. and further evaluation by Urology. PAST MEDICAL HISTORY: 1. Vertigo. 2. Depression. 3. History of Raynaud's. 4. Insomnia. 5. GERD. 6. BPH, status post TURP. 7. Depression and anxiety. 8. Arthritis. 9. History of cataracts. 10. Hypertension. 11. History of glaucoma. 12. Parkinson's. MEDICATIONS: 1. Protonix 40 mg 2 to 3 times per week. 2. Carbidopa/levodopa 25-100 b.i.d. 3. Alfuzosin 10 mg daily. 4. Vitamin B12 daily. 5. Aspirin 81 mg daily. 6. Combigan one drop in each eye b.i.d. 7. Vitamin D monthly. 8. Meclizine 25 mg daily. 9. Temazepam 15 mg 45 minutes prior to bedtime. 10. Prozac 40 mg daily. 11. Diazepam 5 mg as needed. ALLERGIES: SULFA and WHOLE EGG. FAMILY HISTORY: Mother from brain tumor. Father from stroke. SOCIAL HISTORY: The patient, as mentioned, lives in assisted living at [facility] with his , Kiersten, who is his healthcare proxy, ambulates independently. He is a remote smoker, quit 50 years ago. Smoked 4 to 5 cigarettes per day for 10 years, one glass of wine per day. No illicit drug use. Code status is full code. REVIEW OF SYSTEMS: 14-point review of systems as mentioned in HPI, otherwise negative. PHYSICAL EXAMINATION GENERAL: Some mild discomfort in his abdomen. VITAL SIGNS: Temp 98.8, pulse rate 69, respiratory rate is 19, oxygen saturation is 98% on room air, blood pressure is 186/99. HEENT: Head is normocephalic. Pupils equal and reactive. Oropharynx: Mucous membranes are moist. NECK: Supple. No lymphadenopathy. RESPIRATORY: Clear to auscultation. Diminished breath sounds. No wheezes, rhonchi, or rales. CARDIAC: Regular rate and rhythm. Soft systolic murmur heard throughout. ABDOMEN: Positive bowel sounds. Soft and some mild distention and discomfort in the right lower quadrant region. EXTREMITIES: +1 DPs. No clubbing, cyanosis, or edema. NEUROLOGIC: Alert and oriented x3. No gross focal neurologic deficit. LABORATORY DATA: White count 4.6, hemoglobin 14.9, hematocrit 43, platelets 181. INR is 1.07. Sodium 136, potassium 4.3, chloride 105, bicarb 27. BUN 17, creatinine 1.11. Glucose 109. Urine shows +3 blood, +2 protein. RADIOGRAPHIC DATA: Shows approximately 7.6 x 7.9 hemorrhagic mass like lesion within the bladder without causing obstruction of the UVJ. Further evaluation is recommended. No significant wall thickening of the bladder, surrounding fat surrounding to suggest cystitis. No obstructing stone or significant hydronephrosis. ASSESSMENT: This is an 78-year-old male with a past medical history of BPH, presents to the emergency room with hematuria, found to have a bladder mass. Hematuria. Assessment: Likely this is related to this hemorrhagic bladder mass vs hemorrhage from his prostate. Patient's H and H are stable and his hemodynamics are stable as well. Plan: We will admit him to short stay. Continue his continuous bladder irrigation, pain meds, bowel regimen. Per Dr. Vega to give a dose of antibiotics. Keep him NPO and Dr. Vega will take him to the OR this morning for further follow up and management. CHRONIC MEDICAL PROBLEMS: 1. We will resume his home medications as prescribed with the exception of holding his baby aspirin in the setting of his gross hematuria. 2. Fluids, electrolytes, nutrition: As mentioned, IV fluids and NPO. 3. DVT prophylaxis: The patient scores high risk. Placed him on SCDs. 4. Code status: The patient is a full code. PATIENT TIME: Greater than 40 minutes spent doing the history and physical, more than half the time spent in direct patient contact. [id number]/[facility] #: [id number] ELA
[2018-09-03] MEDS ORDERED: fentaNYL* 50 MCG/ML 2 ML VIAL (100 MCG VIAL) ONE ×2 (09:22→11:06)
[2018-09-03] MEDS ORDERED: Midazolam* 1 MG/ML 2 ML VIAL (2 MG) ONE (09:22)
[2018-09-03] MEDS ORDERED: Lidocaine 1% INJ* 10 MG/ML 30 ML SDV ONE (10:25)
[2018-09-03] MEDS ORDERED: Gentamicin ADULT (*) 160 MG in NS 0.9% 100 ML* 100 ML IVPB ONE (10:30)
[2018-09-03] MEDS ORDERED: Ondansetron INJ* 2 MG/ML VIAL ONE (11:53)
[2018-09-03] MEDS ORDERED: Propofol* 10 MG/ML 20 ML BTL ONE (11:53)
[2018-09-03] MEDS ORDERED: EPHEDrine (Pressors)* 50 MG/ML VIAL ONE (11:53)
[2018-09-03] MEDS ORDERED: Dexamethasone IV* 4 MG/ML 1 ML (4 MG) ONE (11:53)
[2018-09-03] MEDS ORDERED: Phenylephrine INJ* 10 MG/ML 1 ML VIAL (10 MG) ONE (11:55)
[2018-09-03] MEDS ORDERED: Furosemide IV* 10 MG/ML 2 ML VIAL (20 MG) ONE ×2 (11:59→12:33)
[2018-09-03] MEDS ORDERED: HYDROmorphone INJ1* 1 MG/ML SYRINGE IV PRN (12:30)
[2018-09-03] MEDS ORDERED: oxyCODONE/Acetamin 5/325 MG* TAB PO PRN (12:30)
[2018-09-03] MEDS ORDERED: Naloxone* 0.4 MG/ML 1 ML VIAL IV PRN (12:30)
[2018-09-03] MEDS ORDERED: hydrALAZINE IV* 20 MG/ML VIAL ONE (12:33)
[2018-09-03] MEDS: Carbidopa/Levodop 10/100 MG TAB(*) PO SCH ×2 (14:18→21:49)
[2018-09-03] MEDS: Omeprazole CAP* 20 MG PO SCH (14:22)
[2018-09-03] MEDS: Cyanocobalamin TAB* 500 MCG PO SCH (14:22)
[2018-09-03] MEDS: ALFUZOSIN 10 MG PO SCH (16:00)
--- NOTE | 2018-09-03 16:04 | PN ---
Subjective Date of Service: 09/03/18 Interval History: Mr. Francois reports he is feeling well. He denies any complaint at the moment. Objective Active Medications: Acetaminophen (Tylenol Tab*) 650 mg PO Q4H PRN Al Hydrox/Mg Hydrox/Simethicone (Maalox Plus*) 30 ml PO Q6H PRN Alfuzosin HCl (Uroxatral (Nf)) 10 mg PO QPM SACHA Brimonidine/Timolol (Combigan 0.2/0.5% (Nf)) 1 drop BOTH EYES BID SACAH Carbidopa/Levodopa (Sinemet 10/100 Tab(*)) 1 tab PO BID SACHA Cyanocobalamin (Vitamin B12 Tab*) 1,000 mcg PO QAM SACHA Diazepam (Valium Tab(*)) 5 mg PO ONCE PRN Docusate Sodium (Colace Cap*) 100 mg PO BID PRN Fluoxetine HCl (Prozac Cap*) 40 mg PO QPM SACHA Sodium Chloride (Ns 0.9% 1000 Ml*) 1,000 mls @ 100 mls/hr IV PER RATE SACHA Meclizine HCl (Antivert Tab*) 25 mg PO DAILY PRN Morphine Sulfate (Morphine Vial*) 4 mg IV Q2HR PRN Omeprazole (Prilosec Cap*) 20 mg PO DAILY@0730 SACHA Ondansetron HCl (Zofran Inj*) 4 mg IV Q4H PRN Senna (Senokot Tab*) 1 tab PO BID PRN Temazepam (Restoril Cap*) 15 mg PO BEDTIME [facility] Vital Signs: Temp Pulse Resp BP Pulse Ox 97.6 F 85 16 140/82 98 09/03/18 14:16 09/03/18 14:16 09/03/18 14:16 09/03/18 14:16 09/03/18 14:16 Oxygen Devices in Use Now: None Appearance: Male sitting in bed in NAD Eyes: No Scleral Icterus Ears/Nose/Mouth/Throat: Mucous Membranes Moist Neck: Trachea Midline Respiratory: Symmetrical Chest Expansion and Respiratory Effort, Clear to Auscultation Cardiovascular: NL Sounds; No Murmurs; No JVD, No Edema Abdominal: NL Sounds; No Tenderness; No Distention Extremities: No Edema Skin: No Rash or Ulcers Neurological: Alert and Oriented x 3, NL Muscle Strength and Tone Nutrition: Taking PO's Result Diagrams: 09/03/18 05:51 09/02/18 23:19 Assess/Plan/Problems-Billing Assessment: Mr. Francois is an 78 yo M with a PMH of BPH, TURP, and parkinsons who was admitted on 09/02/18 with concern for hematuria and hemorrhagic bladder mass now s/p TURP with Dr. Vega. - Patient Problems (1) Hematuria Comment: - Appreciate Dr. Vega's consult, now s/p TURP with report of finding of 'cyst' - Pathology pending - Continue hendrix with management per Dr. Vega (2) Parkinson disease Comment: - Continue sinemet (3) Depression Comment: - Continue prozac (4) GERD (gastroesophageal reflux disease) Comment: - Continue omeprazole (5) DVT prophylaxis Comment: - Continue SCDs (6) Full code status Comment: Status and Disposition: Inpatient. Anticipate discharge to home when medically stable.
[2018-09-03] MEDS: Acetaminophen TAB* 325 MG PO PRN (16:31)
[2018-09-03] MEDS: Lactated Ringers 1000 ML Bag* 1,000 ML IV SCH (21:49)
[2018-09-03] MEDS: FLUoxetine CAP* 20 MG PO SCH (21:49)
[2018-09-03] MEDS: Temazepam CAP* 15 MG PO SCH (21:49)
[2018-09-04] MEDS: Lactated Ringers 1000 ML Bag* 1,000 ML IV SCH ×3 (04:34→19:01)
--- NOTE | 2018-09-04 06:36 | OP ---
CC: Dr. Sawyer * DATE OF OPERATION: 09/03/18 - ROOM #350 DATE OF : 36 SURGEON: Dr. Vega. ANESTHESIOLOGIST: Dr. Hair. ANESTHESIA: General. PRE-OP DIAGNOSES: 1. Gross hematuria. 2. Clot retention. 3. BPH. POST-OP DIAGNOSES: 1. Gross hematuria. 2. Clot retention. 3. BPH. OPERATIVE PROCEDURE: 1. Cystoscopy and clot evacuation. 2. Transurethral resection of prostate. 3. Fulguration of bleeding area in bladder. COMPLICATIONS: None. INDICATIONS: Timo Francois is an 78-year-old gentleman with a longstanding history of prostate enlargement. He had undergone transurethral resection of prostate approximately 12 years ago and has recently been on Proscar for an increasing regrowth of prostate tissue. He presented to the emergency room with gross hematuria and clot retention and had a 3-way Pham catheter placed, which kept clotting off. He is now being brought in for further evaluation and management. A CT urogram was obtained which was suggestive of a bladder mass, although I think that may be representing a large amount of clots within the urinary bladder. FINDINGS: 1. Markedly enlarged vascular prostate with bleeding noted from lateral lobe. 2. Multiple areas of abrasion in the bladder (probably secondary to Pham catheter and irrigation) with one area, right lateral wall, with mucosal abrasion and bleeding noted. 3. Multiple large clots within urinary bladder. POSTOPERATIVE CONDITION: Stable. CATHETER: 26-Maldivian 3-way Pham. DESCRIPTION OF PROCEDURE: After induction of general anesthesia (after initial attempt at spinal was unsuccessful), the patient was placed in dorsal lithotomy position. Sequential compression devices were in place and functioning. Initial cystoscopy revealed normal-appearing urethra, the prostate was markedly enlarged and vascular. Active bleeding was noted from both right and left lateral lobes of the prostate. The bladder was distended due to multiple large clots. Using an [employer] evacuator, these clots were removed. In spite of removing the clots, the visibility within the bladder was suboptimal. I could visualize at least one area in the right lateral wall where there appeared to be mucosal abrasion and bleeding and this was carefully cauterized. I did not visualize any definite evidence of bladder tumors, although my plan is to repeat a cystoscopy at some point after the acute problem has resolved. Attention was directed to the prostate, which appeared to be quite clearly the source of the active bleeding. Using a resectoscope, transurethral resection of the prostate was carried out in the standard fashion from the bladder neck down to the veru. The prostate was extremely vascular and required frequent use of the electrocautery throughout the procedure. The resected tissue was removed from the bladder using the [employer] evacuator. A 26-Maldivian 3-way Pham was introduced into the bladder. The balloon was inflated with 50 cc of water and placed on moderate traction. The patient tolerated the procedure satisfactorily and was transferred back to recovery area in stable condition. [id number]/[facility] #: [id number] MTDD
[2018-09-04] MEDS: TIMOLOL BOTH EYES SCH ×2 (08:40→21:13)
[2018-09-04] MEDS: BRIMONID BOTH EYES SCH ×2 (08:40→21:13)
[2018-09-04] MEDS: Omeprazole CAP* 20 MG PO SCH (08:40)
[2018-09-04] MEDS: Carbidopa/Levodop 10/100 MG TAB(*) PO SCH ×2 (08:40→21:12)
[2018-09-04] MEDS: Cyanocobalamin TAB* 500 MCG PO SCH (08:40)
[2018-09-04] MEDS: Acetaminophen TAB* 325 MG PO PRN ×2 (08:49→21:13)
[2018-09-04] MEDS ORDERED: cefTRIAXone(*) 2 GM in NS 0.9% 100 ML* 100 ML IVPB ONE (09:00)
--- NOTE | 2018-09-04 14:59 | PN ---
Subjective Date of Service: 09/04/18 Interval History: Mr. Francois is feeling better today. He has been up ambulating in the hallways. He had some SOB after one lap around the unit. He denies urinary symptoms. Appetite is good. One episode of emesis this morning after eating breakfast, though he believes it was because the spiciness. No nausea. Denies CP , diarrhea, dizziness. thinks his abd appears distended from baseline. Family History: Unchanged from Admission Social History: Unchanged from Admission Past Medical History: Unchanged from Admission Objective Active Medications: Acetaminophen (Tylenol Tab*) 650 mg PO Q4H PRN FEVER/PAIN Al Hydrox/Mg Hydrox/Simethicone (Maalox Plus*) 30 ml PO Q6H PRN INDIGESTION Alfuzosin HCl (Uroxatral (Nf)) 10 mg PO QPM SACHA Brimonidine/Timolol (Combigan 0.2/0.5% (Nf)) 1 drop BOTH EYES BID SACHA Carbidopa/Levodopa (Sinemet 10/100 Tab(*)) 1 tab PO BID SACHA Cyanocobalamin (Vitamin B12 Tab*) 1,000 mcg PO QAM SACHA Diazepam (Valium Tab(*)) 5 mg PO ONCE PRN SLEEP Docusate Sodium (Colace Cap*) 100 mg PO BID PRN CONSTIPATION Fluoxetine HCl (Prozac Cap*) 40 mg PO QPM [facility] Lactated Ringer's (Lactated Ringers 1000 Ml Bag*) 1,000 mls @ 150 mls/hr IV PER RATE SACHA Meclizine HCl (Antivert Tab*) 25 mg PO DAILY PRN VERTIGO Morphine Sulfate (Morphine Vial*) 4 mg IV Q2HR PRN PAIN - MILD Omeprazole (Prilosec Cap*) 20 mg PO DAILY@0730 SACHA Ondansetron HCl (Zofran Inj*) 4 mg IV Q4H PRN NAUSEA/VOMITING Senna (Senokot Tab*) 1 tab PO BID PRN CONSTIPATION Temazepam (Restoril Cap*) 15 mg PO BEDTIME [facility] Vital Signs - 8 hr 09/04/18 09/04/18 09/04/18 07:47 08:45 11:11 Temperature 100.0 F 99.4 F Pulse Rate 100 106 Respiratory 17 16 16 Rate Blood Pressure 134/67 147/65 (mmHg) O2 Sat by Pulse 97 96 Oximetry Oxygen Devices in Use Now: None Appearance: Elderly male sitting in chair in NAD Eyes: No Scleral Icterus Ears/Nose/Mouth/Throat: Mucous Membranes Moist Neck: NL Appearance and Movements; NL JVP, Trachea Midline Respiratory: Symmetrical Chest Expansion and Respiratory Effort, Clear to Auscultation Cardiovascular: NL Sounds; No Murmurs; No JVD, RRR Abdominal: - - Soft, mildly distended, tenderness to palpation of RLQ Extremities: No Edema Skin: No Rash or Ulcers Neurological: Alert and Oriented x 3 Lines/Tubes/Other Access: Clean, Dry and Intact Peripheral IV Nutrition: Taking PO's Result Diagrams: 09/03/18 05:51 09/02/18 23:19 Assess/Plan/Problems-Billing Assessment: Mr. Francois is an 78 yo M with a PMH of BPH, TURP, and parkinsons who was admitted on 09/02/18 with concern for hematuria and hemorrhagic bladder mass now s/p TURP with Dr. Vega. - Patient Problems (1) Status post recent transurethral resection of prostate Code(s): Z98.890 - OTHER SPECIFIED POSTPROCEDURAL STATES SNOMED Code(s): 258000491 Comment: - POD 1 - Management per urology (2) Hematuria Code(s): R31.9 - HEMATURIA, UNSPECIFIED SNOMED Code(s): 22158113 Comment: - Red-tinged urine today - Appreciate Dr. Vega's consult, now s/p TURP with report of finding of 'cyst' - Pathology pending - Continue hendrix with management per Dr. Vega (3) Parkinson disease Code(s): G20 - PARKINSON'S DISEASE SNOMED Code(s): 14485210 Comment: - Continue sinemet (4) GERD (gastroesophageal reflux disease) Code(s): K21.9 - GASTRO-ESOPHAGEAL REFLUX DISEASE WITHOUT ESOPHAGITIS SNOMED Code(s): 040464664 Comment: - Continue omeprazole (5) Depression Code(s): F32.9 - MAJOR DEPRESSIVE DISORDER, SINGLE EPISODE, UNSPECIFIED SNOMED Code(s): 83860569 Comment: - Continue prozac (6) DVT prophylaxis Code(s): LOF4054 - SNOMED Code(s): 013092060 Comment: - SCDs (7) Full code status Code(s): Z78.9 - OTHER SPECIFIED HEALTH STATUS SNOMED Code(s): 965177771 Status and Disposition: Inpatient. Anticipate discharge to home when medically stable. Attending: Nicolas Modi
[2018-09-04] MEDS: FLUoxetine CAP* 20 MG PO SCH (17:42)
[2018-09-04] MEDS: ALFUZOSIN 10 MG PO SCH (17:51)
[2018-09-04] MEDS: Temazepam CAP* 15 MG PO SCH (21:13)
[2018-09-05] MEDS: Lactated Ringers 1000 ML Bag* 1,000 ML IV SCH ×2 (01:39→08:28)
[2018-09-05] MEDS: BRIMONID BOTH EYES SCH (08:24)
[2018-09-05] MEDS: TIMOLOL BOTH EYES SCH (08:24)
[2018-09-05 08:25] VITALS: BP 142/72
[2018-09-05] MEDS: Cyanocobalamin TAB* 500 MCG PO SCH (08:28)
[2018-09-05] MEDS: Carbidopa/Levodop 10/100 MG TAB(*) PO SCH (08:28)
[2018-09-05] MEDS: Omeprazole CAP* 20 MG PO SCH (08:28)
--- NOTE | 2018-09-06 03:17 | DS ---
AMENDED REPORT NOW INCLUDES DESIGNATED COSIGNER CC: Dr. Jimbo Sawyer; Dr. Robby Vega * DISCHARGE SUMMARY: DATE OF ADMISSION: 09/03/18 DATE OF DISCHARGE: 09/05/18 PRIMARY CARE PROVIDER: Dr. Jimbo Sawyer. UROLOGIST: Dr. Robby Vega. ATTENDING PHYSICIAN: Dr. Nino Modi * (dictated by Julia Singer NP). PRIMARY DIAGNOSES: 1. Hematuria. 2. Status post transurethral resection of the prostate. SECONDARY DIAGNOSES: 1. Parkinson disease. 2. Gastroesophageal reflux disease. 3. Depression. STUDIES WHILE IN THE HOSPITAL: 1. Urogram CT on 09/02/18 reads as approximately 7.6 x 7.9 cm hemorrhagic mass- like lesion within the bladder without causing obstruction of the UVJ. Further evaluation is recommended. No significant wall thickening of the bladder or surrounding fat stranding to suggest cystitis. No obstructing stone or significant hydronephrosis. A moderate hiatal hernia. Colonic diverticulosis with no evidence of acute diverticulitis. Large fecal load. 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 A 0.9 cm left adrenal adenoma. 2. EKG on 09/02/18 shows normal sinus rhythm with a rate of 76, QTc 421. 3. Chest x-ray on 09/03/18 reads as no active cardiopulmonary disease. HISTORY OF PRESENT ILLNESS AND HOSPITAL COURSE: Mr. Francois is an 78-year-old male with past medical history of GERD, BPH, hypertension, Parkinson's, and depression, who presented to the emergency room on 09/03/18 with complaints of acute onset hematuria. Please see the history and physical by Dr. Carr for complete summary of the events leading up to this hospitalization. In short, the patient noticed marc blood in his urine and immediately presented to the emergency room. He reported that over the last year, he has had some lower abdominal discomfort specifically in the right lower quadrant. He denied any nausea, vomiting, diarrhea, fever, or chills. He denied any other urinary symptoms. He was admitted by the hospitalist service. Dr. Vega was contacted due to the hematuria and the CT findings as noted above. A Pham was placed and the patient was placed on continuous bladder irrigation. The patient was taken to the OR on 09/03/18 for a cystoscopy and clot evacuation, transurethral resection of the prostate, and fulguration of the bleeding area in the bladder. The patient tolerated the procedure well and his recovery was uneventful. The day following surgery, the patient continued to recover well. He continued to have blood-tinged urine, though it was significantly improved from admission. He has continued to have some right lower quadrant tenderness to palpation, though no pain. A surgical specimen was taken in the OR, which revealed benign prostate tissue with glandular and stromal hyperplasia and no evidence of neoplasia. As of today, the patient continues to report feeling well. He has been ambulating around the unit. He has been eating well and offers no complaints. He continues to have some mild tenderness to the right lower quadrant on palpation. I did speak with Dr. Vega who reports that from his standpoint, the patient is stable for discharge and should follow up with him next week. He should be discharged with his Pham with further management per Dr. Vega. Mr. Francois is stable for discharge today. Vital signs are as follows: Temp 98.8, heart rate 95, respiratory rate 15, oxygen saturation 96% on room air, blood pressure 142/72. DISCHARGE MEDICATIONS: Continued Medications: 1. Alfuzosin 10 mg p.o. at bedtime. 2. Aspirin 81 mg p.o. daily. 3. Brimonidine/timolol 0.2%/0.5% one drop both eyes b.i.d. 4. Sinemet 10/100 one tab p.o. b.i.d. 5. Vitamin B12 1000 mcg p.o. daily. 6. Diazepam 5 mg p.o. bedtime p.r.n. insomnia. 7. Vitamin D2 50,000 units p.o. monthly. 8. Fluoxetine 40 mg p.o. daily. 9. Meclizine 25 mg p.o. b.i.d. 10. Pantoprazole 40 mg p.o. daily. 11. Temazepam 15 mg p.o. at bedtime. DISCHARGE PLAN: Mr. Francois will be discharged back to [facility]. Activity will be as tolerated. Diet will be regular as tolerated. Medications are noted above. There have been no changes in medications. The patient's Pham will remain in place at the time of discharge. He has been instructed on Pham care by nursing staff and verbalizes understanding of appropriate Pham care. He will need to follow up with Dr. Vega next Saturday. He should follow up with his PCP in 4 to 7 days. He has been instructed to return to the emergency room or nearest hospital for any worsening of symptoms, shortness of breath, lightheadedness, dizziness, chest discomfort, high fevers, chills, night sweats, loss of consciousness, or any other worrisome signs or symptoms. This is a summarized report of a complex medical history and hospital stay. For further details, please see the entire medical record. TIME SPENT: Approximately 40 minutes were spent on this discharge. JULIA SINGER NP [id number]/[facility] #: [id number] ELA
== END 2018-09-05 11:25 | disposition home or self-care (01) | DRG 714 ==
LOC: ED 22:24 → SSU 09-03 03:42
PROVIDERS: ADMIT Pediatrics; ATTEND Pediatrics
PROC: 0TCB8ZZ Extirpation of Matter from Bladder, Via Natural or Artificial Opening Endoscopic (ICD-10-PCS; 2018-09-03)
PROC: 0T9B70Z Drainage of Bladder with Drainage Device, Via Natural or Artificial Opening (ICD-10-PCS; 2018-09-03)
PROC: 0VT08ZZ Resection of Prostate, Via Natural or Artificial Opening Endoscopic (ICD-10-PCS; principal; 2018-09-03 10:00)
DX: N40.0 Benign prostatic hyperplasia without lower urinary tract symptoms (principal); R31.0 Gross hematuria; I10 Essential (primary) hypertension; G47.30 Sleep apnea, unspecified; K21.9 Gastro-esophageal reflux disease without esophagitis; K44.9 Diaphragmatic hernia without obstruction or gangrene; M19.90 Unspecified osteoarthritis, unspecified site; Z96.643 Presence of artificial hip joint, bilateral; H26.9 Unspecified cataract; H40.9 Unspecified glaucoma; G20 Parkinson's disease; K57.30 Diverticulosis of large intestine without perforation or abscess without bleeding; D35.02 Benign neoplasm of left adrenal gland; N32.89 Other specified disorders of bladder; I71.4 Abdominal aortic aneurysm, without rupture; I73.00 Raynaud's syndrome without gangrene; F41.9 Anxiety disorder, unspecified; F32.9 Major depressive disorder, single episode, unspecified; Z98.1 Arthrodesis status; Z80.8 Family history of malignant neoplasm of other organs or systems; Z87.891 Personal history of nicotine dependence; Z72.89 Other problems related to lifestyle; Z88.2 Allergy status to sulfonamides; Z91.012 Allergy to eggs; Z82.3 Family history of stroke; Z79.82 Long term (current) use of aspirin
CPT/HCPCS: 36415; 71045; 74178; 76377; 80048; 81003; 81015; 85025; 85610; 85730; 87086; 88305; 88342; 93005; 99284; A9270-GY; J0360; J0696; J1100; J1580; J1940; J2250; J2270; J2405; J2704; J3010; Q9967

== ENCOUNTER 2018-09-07 13:55 | Emergency (ER) | payer MEDICARE, BC ==
--- NOTE | 2018-09-07 14:19 | ED ---
GI/ HPI - HPI Summary HPI Summary: This patient is a 78 year old M brought in by EMS from [place] to [facility] with urinary retention and suprapubic distension. Pt states he was recently seen by Dr Vega who cleaned a large clot from his catheter that was plugging it. He states he was told he has a bleeding prostate. Today he felt a pubic pressure that he believes was constipation until he noticed the lack of urine in his cath bag and the red tinge to it. He believes he has another clot clogging the cath. He is not on abx or blood thinners currently. The patient rates the pain 8 /10 in severity. - History of Current Complaint Chief Complaint: EDUrogenitalProblems Time Seen by Provider: 09/07/18 14:04 Stated Complaint: URINARY Hx Obtained From: Patient Onset/Duration: Started Hours Ago, Still Present Timing: Constant Severity: Mild Current Severity: Moderate Pain Intensity: 8 Location of Pain: Suprapubic Associated Signs and Symptoms: Positive: Hematuria - Additional Pertinent History Primary Care Physician: MIRTHA - Allergy/Home Medications Allergies/Adverse Reactions: Allergies Allergy/AdvReac Type Severity Reaction Status Date / Time Sulfa (Sulfonamide Allergy reaction Verified 09/07/18 14:52 Antibiotics) as a child egg AdvReac Diarrhea Verified 09/07/18 14:52 Egg Derived AdvReac Diarrhea Verified 09/07/18 14:52 egg yolk AdvReac Diarrhea Verified 09/07/18 14:52 PMH/Surg Hx/FS Hx/Imm Hx Endocrine/Hematology History: Denies: Hx Diabetes Cardiovascular History: Reports: Hx Hypertension - HX OF IN THE PAST- REPORTS NOT CURRENTLY AND NO MEDICATION FOR Denies: Hx Pacemaker/ICD, Other Cardiovascular Problems/Disorders Respiratory History: Reports: Hx Sleep Apnea - neg sleep study Denies: Other Respiratory Problems/Disorders - PNEUMONIA A CHILD GI History: Reports: Hx Gastroesophageal Reflux Disease - ON MEDICATION FOR, Hx Hiatal Hernia Denies: Other GI Disorders History: Reports: Other Problems/Disorders - ENLARGE PROSTATE Denies: Hx Dialysis, Hx Renal Disease Musculoskeletal History: Reports: Hx Arthritis - all over, mild, Other Musculoskeletal History - BILATERAL HIP REPLACEMENTS Sensory History: Reports: Hx Cataracts, Hx Glaucoma Denies: Hx Contacts or Glasses, Hx Hearing Aid Opthamlomology History: Reports: Hx Cataracts, Hx Glaucoma Denies: Hx Contacts or Glasses Neurological History: Reports: Hx Headaches - A CHILD, Hx Seizures - X 1 STATES RELATED TO [place]-05/2017, Other Neuro Impairments/Disorders - Parkinson's Psychiatric History: Reports: Hx Anxiety - ON MEDICATION FOR, Hx Depression - ON MEDICATION FOR Denies: Hx Panic Disorder - Surgical History Surgery Procedure, Year, and Place: BILATERAL HIP REPLACEMENTS ,. CERVICAL FUSION 1987,. FINGER SURGERY Hx Anesthesia Reactions: No Infectious Disease History: No Infectious Disease History: Denies: History Other Infectious Disease, Traveled Outside the [place] in Last 30 Days - Family History Known Family History: Positive: Other - Brain cancer Negative: Cardiac Disease, Hypertension, Diabetes - Social History Alcohol Use: Glass of wine at dinner Alcohol Amount: 1-2 GLASSES OF WINE DAILY Substance Use Type: Reports: None Smoking Status (MU): Former Smoker Type: Cigarettes Amount Used/How Often: <1 PPD X 10 YEARS Have You Smoked in the Last Year: No Review of Systems Negative: Fever Positive: Abdominal Pain - w/ distension Positive: hematuria All Other Systems Reviewed And Are Negative: Yes Physical Exam - Summary Physical Exam Summary: Appearance: Well appearing, no pain distress Skin: warm, dry, reflects adequate perfusion Head/face: normal Eyes: EOMI, KAMILLE. Mild conjunctival pallor ENT: mucous membranes moist Neck: supple, non-tender Respiratory: CTA, breath sounds present Cardiovascular: RRR, pulses symmetrical. Pulses are strong Abdomen: gross distension of the urinary bladder. Cath in place with red tinged urine in the bag Bowel Sounds: present Musculoskeletal: trace LE edema, strength/ROM intact Neuro: normal, sensory motor intact, A&Ox3 Triage Information Reviewed: Yes Vital Signs On Initial Exam: Initial Vitals Temp Pulse Resp BP Pulse Ox 99 F 82 16 163/91 98 09/07/18 14:11 09/07/18 14:11 09/07/18 14:11 09/07/18 14:11 09/07/18 14:11 Vital Signs Reviewed: Yes Diagnostics - Vital Signs Vital Signs Temp Pulse Resp BP Pulse Ox 09/07/18 14:11 99 F 82 16 163/91 98 - Laboratory Result Diagrams: 09/07/18 15:04 09/07/18 15:04 Lab Statement: Any lab studies that have been ordered have been reviewed, and results considered in the medical decision making process. - CT CT ABD/pelvis CT Interpretation Completed By: Radiologist Summary of CT Findings: There is new left hydronephrosis and perinephric infiltration of FAT of the. left kidney when compared to September 03, 2018. There is suggestion of a recently passed. calculus in the left urinary bladder. The evaluation of the urinary bladder is obscured by. the hip replacements. The Hendrix catheter appears to be in normal location. ED physician has reviewed this radiology report. Re-Evaluation - Re-Evaluation First Eval Re-Evaluation Time: 14:56 Change: Improved Comment: The patient has emptied his bladder after irrigation and he has clear urine. His ABD distension has decreased. Rectal exam shows no stool in the vault and the prostate is very enlarged. He is concerned as he has not passed stool recently, enema will performed. Second Eval Re-Evaluation Time: 18:10 Comment: The patient received medications recommended per urology but states he still feels too uncomfortable to go home. The 10cc was re inserted into his hendrix GIGU Course/Dx - Course Course Of Treatment: Patient is well-known to me having treated him recently for hematuria. The patient was found to have very large prostate that was bleeding causing Ativan. He was discharged home with a Hendrix catheter and presents today with suprapubic pain and urinary retention. Clot was irrigated from and urine drained. He was more comfortable after this but still having significant amount of suprapubic pain felt through to the left flank and back. Under real-time bedside ultrasound I was able to determine there is approximately 50 cc of fluid in the Hendrix balloon. This was deflated and the patient did have some relief from that. He continued to have significant tenderness, mostly in the back and so CT was obtained. There shows significant fat stranding around the left kidney. This was relayed to the urologist who wished for the patient to have IV antibiotics and fluids. These were given the patient was still having discomfort despite 2 doses of morphine. The urologist spoke to the patient and would like to clear him to go home. He is going to follow-up the patient first thing in the morning. The patient will be placed on oral Cipro, Percocet for pain. Patient also was given enema here for constipation with some improvement. He will be given Colace to help control this. Assessment/Plan: I reviewed the nurse's note. - Diagnoses Differential Diagnoses - Male: Other - Pyelonephritis, urinary retention,, occasional Hendrix catheter, sepsis Provider Diagnoses: Urinary retention, Prostate hypertrophy, Flank pain, Status post recent transurethral resection of prostate - Physician Notifications Discussed Care Of Patient With: Robby Vega Time Discussed With Above Provider: 17:00 Instructed by Provider To: Other - He suggested giving the patient antibiotics, fluids, and to attempt discharge the patient. 1809: Dr. Vega spoke to the patient and he will discharge the patient. - Critical Care Time Critical Care Time: 30-74 min - CCT is EXCLUSIVE of separately billable procedures. Discharge - Sign-Out/Discharge Documenting (check all that apply): Patient Departure - Discharge Plan Condition: Improved Disposition: HOME Prescriptions: Ciprofloxacin TAB* [Cipro 250 MG Tab*] 250 mg PO BID #14 tab Docusate Sodium [Colace] 100 mg PO BID #30 capsule oxyCODONE/Acetam5/325MG PREPAK [Percocet 5/325 TAB*] 1 tab PO TID #6 tab MDD 3 Patient Education Materials: Urinary Retention in Men (ED), Enlarged Prostate ( BPH) (ED) Referrals: Jimbo Sawyer MD [Primary Care Provider] - Robby Vega MD [Medical Doctor] - Additional Instructions: Call and follow-up with Dr. Vega first thing in the morning. Return with fever , increased pain, uncontrolled pain, worse, new symptoms or other concerns. - Billing Disposition and Condition Condition: IMPROVED Disposition: Home - Attestation Statements Document Initiated by Scribe: Yes Documenting Scribe: Reed Seymour Provider For Whom Scribe is Documenting (Include Credential): Brenton Mar MD Scribe Attestation: Reed Coates , scribed for Brenton Mar MD on 09/07/18 at 1852. Scribe Documentation Reviewed: Yes Provider Attestation: The documentation as recorded by the Reed josé accurately reflects the service I personally performed and the decisions made by me, Brenton Mar MD Status of Scribe Document: Viewed
[2018-09-07 15:17] LABS: ABS Basophils 0 10^3/ul (0-0.2); ABS Eosinophils 0.3 10^3/ul (0-0.6); ABS Lymphocytes 0.9 10^3/ul (1.0-4.8); ABS Monocytes 0.5 10^3/ul (0-0.8); ABS Neutrophils 3.3 10^3/ul (1.5-7.7); ABS Nucleated RBC 0 10^3/ul; Eosinophil % 5.3 %; Hematocrit 31 % (42-52); Hemoglobin 10.8 g/dl (14.0-18.0); Lymphocyte % 17.3 %; Mean Corpuscular HGB Conc 35 g/dl (31-36); Mean Corpuscular Hemoglobin 31 pg (27-31); Mean Corpuscular Volume 89 fL (80-94); Mean Platelet Volume 6.3 fL (7.4-10.4); Nucleated Red Blood Cells % 0; Platelet Count 214 10^3/ul (150-450); Red Blood Count 3.49 10^6/ul (4.00-5.40); Red Cell Distribution Width 14 % (10.5-15); White Blood Count 5.1 10^3/ul (3.5-10.8)
[2018-09-07 15:32] LABS: Calcium 8.9 mg/dL (8.6-10.3); EGFR Non-African American 57.7 (>60)
[2018-09-07] MEDS ORDERED: Morphine VIAL* 4 MG/ML VIAL (1 ml vial) IV ONE ×2 (15:36→18:06)
[2018-09-07 16:58] LABS: Urine Appearance Cloudy; Urine Bacteria Absent (Absent); Urine Bilirubin Negative (Negative); Urine Blood 3+ (Negative); Urine Color Yellow; Urine Glucose Negative (Negative); Urine Ketones Trace (Negative); Urine Nitrite Negative (Negative); Urine Protein 2+(100 mg/dL) (Negative); Urine Red Blood Cell 3+(>10/hpf) (Absent); Urine Urobilinogen Negative (Negative); Urine White Blood Cell 2+(11-20/hpf) (Absent)
[2018-09-07] MEDS ORDERED: cefTRIAXone(*) 1 GM in NS 0.9% 50 ML* 50 ML IVPB ONE (16:58)
[2018-09-07] MEDS ORDERED: NS 0.9% 1000 ML* 1,000 ML IV ONE ×2 (16:59→17:00)
[2018-09-07 18:57] VITALS: BP 139/74
[2018-09-07] MEDS ORDERED: oxyCODONE/Acetamin 5/325 MG* TAB PO SCH (19:00)
== END 2018-09-07 19:40 | disposition home or self-care (01) ==
LOC: ED 13:55
DX: N40.1 Benign prostatic hyperplasia with lower urinary tract symptoms (principal); R33.8 Other retention of urine; N40.0 Benign prostatic hyperplasia without lower urinary tract symptoms; R10.9 Unspecified abdominal pain; N13.30 Unspecified hydronephrosis; F17.210 Nicotine dependence, cigarettes, uncomplicated; K21.9 Gastro-esophageal reflux disease without esophagitis; G20 Parkinson's disease; F41.9 Anxiety disorder, unspecified; F32.9 Major depressive disorder, single episode, unspecified; K59.00 Constipation, unspecified
CPT/HCPCS: 36415; 74176; 80048; 81003; 81015; 85025; 87086; 96361; 96374; 99284; J0696; J2270